=== PATIENT | male | born 1960 | race Caucasian/White ===

== ENCOUNTER 2022-05-06 14:10 | Inpatient (IN) | payer MEDICARE, MEDICAID ==
[~2022-05-06] VITALS: Ht 172.7 cm; Wt 58.3 kg
[2022-05-06] MEDS ORDERED: ZOLPIDEM TARTRATE 10 MG TABLET PO PRN (19:00)
[2022-05-06] MEDS ORDERED: HALOPERIDOL 5 MG TABLET PO PRN (19:00)
[2022-05-06] MEDS ORDERED: LORazepam 2 MG TABLET PO PRN (19:00)
[2022-05-06] MEDS ORDERED: INFLUENZA VIRUS VACCINE QVS 2022-23 (6MO+)/PF 60 MCG/0.5 ML SYRINGE IM. ONE (19:15)
[2022-05-06 20:41] VITALS: BP 105/69
[2022-05-07 07:27] LABS: BASOPHILS % (AUTO) 1.7 % (0.0-2.0); EOSINOPHILS % (AUTO) 5.8 % (1.0-6.0); HEMATOCRIT 42.1 % (41-53); HEMOGLOBIN 13.8 g/dL (13.5-17.5); LYMPHOCYTES # (AUTO) 0.8 K/uL (1.0-4.8); LYMPHOCYTES % (AUTO) 19.3 % (22.0-44.0); MEAN CORPUSCULAR HEMOGLOBIN 31.1 pg (26.0-34.0); MEAN CORPUSCULAR HGB CONC 32.9 G/dL (31.0-37.0); MEAN CORPUSCULAR VOLUME 95 fL (80-100); MONOCYTES # (AUTO) 0.3 K/uL (0.1-1.0); MONOCYTES % (AUTO) 8.5 % (2.0-9.0); NEUTROPHILS # (AUTO) 2.5 K/uL (1.8-7.7); NEUTROPHILS % (AUTO) 64.7 % (40.0-70.0); PLATELET COUNT (AUTO) 325 K/uL (150-450); RED BLOOD CELL COUNT(AUTO) 4.45 MIL/uL (4.50-5.90); RED CELL DISTRIBUTION WIDTH 14.3 % (11.5-14.5)
[2022-05-07 07:56] LABS: ALANINE AMINOTRANSFERASE 39 U/L (12-78); ALBUMIN 3.6 g/dL (3.4-5.0); ALKALINE PHOSPHATASE 58 U/L (46-116); ANION GAP 6 mmol/L (8-16); ASPARTATE AMINOTRANSFERASE 27 U/L (15-37); BILIRUBIN,TOTAL 0.3 mg/dL (0.1-1.0); CALCIUM, TOTAL 8.5 mg/dL (8.8-10.5); CARBON DIOXIDE 28 mmol/L (22-29); CHLORIDE 103 mmol/L (98-107); CHOL/HDL RATIO 2.5 (4.2-7.3); CHOLESTEROL 284 mg/dL (131-200); CREATININE 0.87 mg/dL (0.60-1.30); FREE T4 (FREE THYROXINE) 0.79 ng/dL (0.76-1.46); GLUCOSE,RANDOM 112 mg/dL (70-110); HDL CHOLESTEROL 115 mg/dL (40-60); HEMOGLOBIN A1C 5.4 % (3.8-5.6); LDL CHOL (CALC.) 160 mg/dL (0-130); POTASSIUM 4.2 mmol/L (3.5-5.1); SODIUM SERUM 137 mmol/L (136-145); THYROID STIMULATING HORMONE 2.46 uIU/mL (0.36-3.74); TOTAL PROTEIN, SERUM 7.1 g/dL (6.4-8.2); TRIGLYCERIDES 47 mg/dL (15-150); UREA NITROGEN, BLOOD 20 mg/dL (7-18)
[2022-05-07 08:04] LABS: GLOMERULAR FILTR. RATE CALC > 60 mL/min (>60)
[2022-05-07 09:20] VITALS: BP 120/70
[2022-05-07] MEDS: FLUoxetine HCL 20 MG CAPSULE PO SCH (11:13)
[2022-05-07] MEDS ORDERED: ALBUTEROL SULFATE HFA 90 MCG/PUFF 8 GM INHALER IH PRN (15:15)
[2022-05-07] MEDS ORDERED: MAG HYDROX/AL HYDROX/SIMETH ES 30 ML SUSPENSION UDCUP PO PRN (15:15)
[2022-05-07] MEDS ORDERED: LOPERAMIDE HCL 2 MG CAPSULE PO PRN (15:15)
[2022-05-07] MEDS ORDERED: CloNIDine HCL 0.1 MG TABLET PO PRN (15:15)
[2022-05-07] MEDS ORDERED: NICOTINE 14 MG/24 HOUR PATCH TD PRN (15:15)
[2022-05-07] MEDS ORDERED: MAGNESIUM HYDROXIDE SUSPENSION 30 ML UDCUP PO PRN (15:15)
[2022-05-07] MEDS ORDERED: PETROLATUM,WHITE 28 GM JELLY TP PRN (15:15)
[2022-05-07] MEDS ORDERED: ACETAMINOPHEN 325 MG TABLET PO PRN (15:15)
[2022-05-07] MEDS ORDERED: ONDANSETRON HCL 4 MG TABLET PO PRN (15:15)
[2022-05-07] MEDS ORDERED: IBUPROFEN 400 MG TABLET PO PRN (15:15)
[2022-05-07] MEDS ORDERED: GuaiFENesin/D-METHORPHAN [SUGAR-FREE] 200-20MG/10 ML SYRUP UDCUP PO PRN (15:15)
[2022-05-07] MEDS ORDERED: DOCUSATE SODIUM 100 MG CAPSULE PO PRN (15:15)
[2022-05-07 19:43] VITALS: BP 119/66
[2022-05-07] MEDS: RisperiDONE 2 MG TABLET PO SCH (20:28)
[2022-05-08 08:08] VITALS: BP 111/59
[2022-05-08] MEDS: MULTIVITAMINS WITH MINERALS, THERAPEUTIC TABLET PO SCH (08:13)
[2022-05-08] MEDS: FLUoxetine HCL 20 MG CAPSULE PO SCH (08:13)
[2022-05-08 08:20] LABS: MAGNESIUM 2.1 mg/dL (1.80-2.40); PHOSPHORUS 3.8 mg/dL (2.5-4.9)
[2022-05-08 20:27] VITALS: BP 133/64
[2022-05-08] MEDS: RisperiDONE 2 MG TABLET PO SCH (20:40)
[2022-05-09 08:32] VITALS: BP 139/70
[2022-05-09] MEDS: FLUoxetine HCL 20 MG CAPSULE PO SCH (08:33)
[2022-05-09] MEDS: MULTIVITAMINS WITH MINERALS, THERAPEUTIC TABLET PO SCH (08:33)
[2022-05-09] MEDS: RisperiDONE 2 MG TABLET PO SCH (22:13)
[2022-05-10 06:58] VITALS: BP 123/78
[2022-05-10] MEDS: FLUoxetine HCL 20 MG CAPSULE PO SCH (08:11)
[2022-05-10] MEDS: MULTIVITAMINS WITH MINERALS, THERAPEUTIC TABLET PO SCH (08:11)
[2022-05-10 08:39] VITALS: BP 119/60
[2022-05-10] MEDS: THIAMINE 100 MG TABLET PO SCH (13:37)
[2022-05-10] MEDS: RisperiDONE 2 MG TABLET PO SCH (20:32)
[2022-05-10 20:47] VITALS: BP 127/68
[2022-05-11 07:58] LABS: MAGNESIUM 2.3 mg/dL (1.80-2.40); PHOSPHORUS 3.7 mg/dL (2.5-4.9)
[2022-05-11] MEDS: THIAMINE 100 MG TABLET PO SCH (08:21)
[2022-05-11] MEDS: FLUoxetine HCL 20 MG CAPSULE PO SCH (08:21)
[2022-05-11] MEDS: MULTIVITAMINS WITH MINERALS, THERAPEUTIC TABLET PO SCH (08:21)
[2022-05-11 08:42] VITALS: BP 123/55
[2022-05-11] MEDS: RisperiDONE 2 MG TABLET PO SCH (20:07)
[2022-05-11 20:15] VITALS: BP 115/70
[2022-05-12 08:31] VITALS: BP 113/55
[2022-05-12 08:38] VITALS: BP 113/55
[2022-05-12] MEDS: MULTIVITAMINS WITH MINERALS, THERAPEUTIC TABLET PO SCH (08:55)
[2022-05-12] MEDS: THIAMINE 100 MG TABLET PO SCH (08:55)
[2022-05-12] MEDS: FLUoxetine HCL 20 MG CAPSULE PO SCH (08:55)
[2022-05-12 20:21] VITALS: BP 125/64
[2022-05-12] MEDS: RisperiDONE 2 MG TABLET PO SCH (20:29)
[2022-05-13] MEDS: FLUoxetine HCL 20 MG CAPSULE PO SCH (08:25)
[2022-05-13] MEDS: MULTIVITAMINS WITH MINERALS, THERAPEUTIC TABLET PO SCH (08:25)
[2022-05-13] MEDS: THIAMINE 100 MG TABLET PO SCH (08:25)
[2022-05-13] MEDS: RisperiDONE 2 MG TABLET PO SCH (20:08)
[2022-05-13 20:23] VITALS: BP 115/65
[2022-05-14] MEDS: THIAMINE 100 MG TABLET PO SCH (08:26)
[2022-05-14] MEDS: FLUoxetine HCL 20 MG CAPSULE PO SCH (08:26)
[2022-05-14] MEDS: MULTIVITAMINS WITH MINERALS, THERAPEUTIC TABLET PO SCH (08:26)
[2022-05-14 08:35] VITALS: BP 139/65
[2022-05-14 08:51] LABS: GLUCOMETER DEV NAME(LOC) POC.BV
[2022-05-14] MEDS: RisperiDONE 2 MG TABLET PO SCH (20:37)
[2022-05-14 20:57] VITALS: BP 131/82
[2022-05-15] MEDS: FLUoxetine HCL 20 MG CAPSULE PO SCH (08:22)
[2022-05-15] MEDS: THIAMINE 100 MG TABLET PO SCH (08:22)
[2022-05-15] MEDS: MULTIVITAMINS WITH MINERALS, THERAPEUTIC TABLET PO SCH (08:24)
[2022-05-15 08:26] VITALS: BP 134/79
[2022-05-15 20:12] VITALS: BP 130/68
[2022-05-15] MEDS: RisperiDONE 2 MG TABLET PO SCH (20:49)
[2022-05-16 08:16] VITALS: BP 131/59
[2022-05-16] MEDS: THIAMINE 100 MG TABLET PO SCH (08:16)
[2022-05-16] MEDS: MULTIVITAMINS WITH MINERALS, THERAPEUTIC TABLET PO SCH (08:16)
[2022-05-16] MEDS: FLUoxetine HCL 20 MG CAPSULE PO SCH (08:16)
[2022-05-16 20:00] VITALS: BP 112/72
[2022-05-16] MEDS: RisperiDONE 2 MG TABLET PO SCH (20:17)
[2022-05-17 08:21] VITALS: BP 140/67
[2022-05-17] MEDS: FLUoxetine HCL 20 MG CAPSULE PO SCH (08:55)
[2022-05-17] MEDS: THIAMINE 100 MG TABLET PO SCH (08:55)
[2022-05-17] MEDS: MULTIVITAMINS WITH MINERALS, THERAPEUTIC TABLET PO SCH (08:55)
[2022-05-17 20:15] VITALS: BP 128/62
[2022-05-17] MEDS: RisperiDONE 2 MG TABLET PO SCH (20:25)
[2022-05-18 08:21] VITALS: BP 121/61
[2022-05-18] MEDS: MULTIVITAMINS WITH MINERALS, THERAPEUTIC TABLET PO SCH (08:40)
[2022-05-18] MEDS: THIAMINE 100 MG TABLET PO SCH (08:40)
[2022-05-18] MEDS: FLUoxetine HCL 20 MG CAPSULE PO SCH (08:40)
[2022-05-18] MEDS: RisperiDONE 2 MG TABLET PO SCH (20:13)
[2022-05-18 20:16] VITALS: BP 122/66
[2022-05-19 08:30] VITALS: BP 135/79
[2022-05-19] MEDS: THIAMINE 100 MG TABLET PO SCH (09:15)
[2022-05-19] MEDS: MULTIVITAMINS WITH MINERALS, THERAPEUTIC TABLET PO SCH (09:16)
[2022-05-19] MEDS: FLUoxetine HCL 20 MG CAPSULE PO SCH (09:16)
[2022-05-19] MEDS: RisperiDONE 2 MG TABLET PO SCH (20:10)
[2022-05-19 20:14] VITALS: BP 132/81
[2022-05-20 08:15] VITALS: BP 136/66
[2022-05-20] MEDS: THIAMINE 100 MG TABLET PO SCH (08:39)
[2022-05-20] MEDS: FLUoxetine HCL 20 MG CAPSULE PO SCH (08:39)
[2022-05-20] MEDS: MULTIVITAMINS WITH MINERALS, THERAPEUTIC TABLET PO SCH (08:40)
[2022-05-20] MEDS: RisperiDONE 2 MG TABLET PO SCH (20:20)
[2022-05-20 20:25] VITALS: BP 121/82
[2022-05-21 08:44] VITALS: BP 138/75
[2022-05-21] MEDS: FLUoxetine HCL 20 MG CAPSULE PO SCH (08:50)
[2022-05-21] MEDS: MULTIVITAMINS WITH MINERALS, THERAPEUTIC TABLET PO SCH (08:50)
[2022-05-21] MEDS: THIAMINE 100 MG TABLET PO SCH (08:50)
[2022-05-21 08:51] LABS: GLUCOMETER DEV NAME(LOC) POC.BV
[2022-05-21] MEDS: RisperiDONE 2 MG TABLET PO SCH (20:09)
[2022-05-21 20:20] VITALS: BP 135/69
[2022-05-22 09:08] VITALS: BP 138/70
[2022-05-22] MEDS: FLUoxetine HCL 20 MG CAPSULE PO SCH (09:11)
[2022-05-22] MEDS: MULTIVITAMINS WITH MINERALS, THERAPEUTIC TABLET PO SCH (09:11)
[2022-05-22] MEDS: THIAMINE 100 MG TABLET PO SCH (09:11)
[2022-05-22] MEDS: RisperiDONE 2 MG TABLET PO SCH (20:34)
[2022-05-22 22:55] VITALS: BP 115/68
[2022-05-23 07:13] LABS: EOSINOPHILS % (AUTO) 4.4 % (1.0-6.0); HEMATOCRIT 40.1 % (41-53); HEMOGLOBIN 13.2 g/dL (13.5-17.5); LYMPHOCYTES # (AUTO) 0.9 K/uL (1.0-4.8); LYMPHOCYTES % (AUTO) 17.7 % (22.0-44.0); MEAN CORPUSCULAR VOLUME 94 fL (80-100); MONOCYTES # (AUTO) 0.6 K/uL (0.1-1.0); NEUTROPHILS # (AUTO) 3.5 K/uL (1.8-7.7); NEUTROPHILS % (AUTO) 65.9 % (40.0-70.0); PLATELET COUNT (AUTO) 339 K/uL (150-450); RED BLOOD CELL COUNT(AUTO) 4.27 MIL/uL (4.50-5.90); RED CELL DISTRIBUTION WIDTH 15.1 % (11.5-14.5)
[2022-05-23] MEDS: FLUoxetine HCL 20 MG CAPSULE PO SCH (09:03)
[2022-05-23] MEDS: MULTIVITAMINS WITH MINERALS, THERAPEUTIC TABLET PO SCH (09:03)
[2022-05-23] MEDS: THIAMINE 100 MG TABLET PO SCH (09:03)
[2022-05-23 09:05] VITALS: BP 130/68
[2022-05-23] MEDS: RisperiDONE 2 MG TABLET PO SCH (20:12)
[2022-05-23 20:49] VITALS: BP 128/78
[2022-05-24] MEDS: FLUoxetine HCL 20 MG CAPSULE PO SCH (08:17)
[2022-05-24] MEDS: MULTIVITAMINS WITH MINERALS, THERAPEUTIC TABLET PO SCH (08:17)
[2022-05-24] MEDS: THIAMINE 100 MG TABLET PO SCH (08:17)
[2022-05-24 08:48] VITALS: BP 135/73
[2022-05-24 20:17] VITALS: BP 138/65
[2022-05-24] MEDS: RisperiDONE 2 MG TABLET PO SCH (20:30)
[2022-05-25] MEDS: MULTIVITAMINS WITH MINERALS, THERAPEUTIC TABLET PO SCH (08:49)
[2022-05-25] MEDS: FLUoxetine HCL 20 MG CAPSULE PO SCH (08:49)
[2022-05-25] MEDS: THIAMINE 100 MG TABLET PO SCH (08:49)
[2022-05-25 08:55] VITALS: BP 129/75
[2022-05-25] MEDS: RisperiDONE 2 MG TABLET PO SCH (20:15)
[2022-05-25 20:44] VITALS: BP 116/80
[2022-05-26 08:17] VITALS: BP 122/74
[2022-05-26] MEDS: MULTIVITAMINS WITH MINERALS, THERAPEUTIC TABLET PO SCH (09:26)
[2022-05-26] MEDS: FLUoxetine HCL 20 MG CAPSULE PO SCH (09:26)
[2022-05-26] MEDS: THIAMINE 100 MG TABLET PO SCH (09:26)
[2022-05-26] MEDS: RisperiDONE 2 MG TABLET PO SCH (20:12)
[2022-05-26 20:34] VITALS: BP 136/77
[2022-05-27 04:34] VITALS: BP 139/76
[2022-05-27 08:09] VITALS: BP 148/75
[2022-05-27] MEDS: FLUoxetine HCL 20 MG CAPSULE PO SCH (09:27)
[2022-05-27] MEDS: THIAMINE 100 MG TABLET PO SCH (09:27)
[2022-05-27] MEDS: MULTIVITAMINS WITH MINERALS, THERAPEUTIC TABLET PO SCH (09:27)
[2022-05-27] MEDS: RisperiDONE 2 MG TABLET PO SCH (20:34)
[2022-05-27 21:04] VITALS: BP 136/78
[2022-05-28 08:15] VITALS: BP 144/76
[2022-05-28] MEDS: THIAMINE 100 MG TABLET PO SCH (08:21)
[2022-05-28] MEDS: MULTIVITAMINS WITH MINERALS, THERAPEUTIC TABLET PO SCH (08:21)
[2022-05-28] MEDS: FLUoxetine HCL 20 MG CAPSULE PO SCH (08:21)
[2022-05-28 08:36] LABS: GLUCOMETER DEV NAME(LOC) POC.BV
[2022-05-28 20:15] VITALS: BP 136/69
[2022-05-28] MEDS: RisperiDONE 2 MG TABLET PO SCH (21:07)
[2022-05-29 04:18] VITALS: BP 130/65
[2022-05-29 08:54] VITALS: BP 122/76
[2022-05-29] MEDS: THIAMINE 100 MG TABLET PO SCH (08:54)
[2022-05-29] MEDS: MULTIVITAMINS WITH MINERALS, THERAPEUTIC TABLET PO SCH (08:54)
[2022-05-29] MEDS: FLUoxetine HCL 20 MG CAPSULE PO SCH (08:54)
[2022-05-29] MEDS: RisperiDONE 2 MG TABLET PO SCH (20:12)
[2022-05-29 21:00] VITALS: BP 136/74
[2022-05-30 08:20] VITALS: BP 128/74
[2022-05-30] MEDS: MULTIVITAMINS WITH MINERALS, THERAPEUTIC TABLET PO SCH (09:06)
[2022-05-30] MEDS: THIAMINE 100 MG TABLET PO SCH (09:06)
[2022-05-30] MEDS: FLUoxetine HCL 20 MG CAPSULE PO SCH (09:06)
[2022-05-30] MEDS: RisperiDONE 2 MG TABLET PO SCH (20:05)
[2022-05-30 20:48] VITALS: BP 106/73
[2022-05-31 09:07] VITALS: BP 115/71
[2022-05-31] MEDS: MULTIVITAMINS WITH MINERALS, THERAPEUTIC TABLET PO SCH (10:17)
[2022-05-31] MEDS: THIAMINE 100 MG TABLET PO SCH (10:17)
[2022-05-31] MEDS: FLUoxetine HCL 20 MG CAPSULE PO SCH (10:17)
[2022-05-31 20:50] VITALS: BP 141/71
[2022-05-31] MEDS: RisperiDONE 2 MG TABLET PO SCH (20:58)
[2022-06-01] MEDS: MULTIVITAMINS WITH MINERALS, THERAPEUTIC TABLET PO SCH (08:23)
[2022-06-01] MEDS: THIAMINE 100 MG TABLET PO SCH (08:23)
[2022-06-01] MEDS: FLUoxetine HCL 20 MG CAPSULE PO SCH (08:24)
[2022-06-01 08:34] VITALS: BP 128/77
[2022-06-01 14:46] LABS: GLUCOMETER DEV NAME(LOC) POC.BV
[2022-06-01 20:23] VITALS: BP 130/71
[2022-06-01] MEDS: RisperiDONE 2 MG TABLET PO SCH (20:28)
[2022-06-02 08:25] VITALS: BP 126/67
[2022-06-02] MEDS: FLUoxetine HCL 20 MG CAPSULE PO SCH (08:27)
[2022-06-02] MEDS: MULTIVITAMINS WITH MINERALS, THERAPEUTIC TABLET PO SCH (08:27)
[2022-06-02] MEDS: THIAMINE 100 MG TABLET PO SCH (08:27)
[2022-06-02] MEDS: RisperiDONE 2 MG TABLET PO SCH (20:06)
[2022-06-02 20:19] VITALS: BP 108/67
[2022-06-03 08:33] VITALS: BP 117/79
[2022-06-03] MEDS: FLUoxetine HCL 20 MG CAPSULE PO SCH (08:49)
[2022-06-03] MEDS: MULTIVITAMINS WITH MINERALS, THERAPEUTIC TABLET PO SCH (08:49)
[2022-06-03] MEDS: THIAMINE 100 MG TABLET PO SCH (08:49)
[2022-06-03] MEDS: RisperiDONE 2 MG TABLET PO SCH (20:10)
[2022-06-03 20:57] VITALS: BP 126/64
[2022-06-04 08:53] VITALS: BP 116/69
[2022-06-04] MEDS: MULTIVITAMINS WITH MINERALS, THERAPEUTIC TABLET PO SCH (08:58)
[2022-06-04] MEDS: THIAMINE 100 MG TABLET PO SCH (08:58)
[2022-06-04] MEDS: FLUoxetine HCL 20 MG CAPSULE PO SCH (08:58)
[2022-06-04] MEDS: RisperiDONE 2 MG TABLET PO SCH (20:03)
[2022-06-04 20:35] VITALS: BP 127/76
[2022-06-05 07:12] LABS: BASOPHILS % (AUTO) 0.5 % (0.0-2.0); EOSINOPHILS % (AUTO) 3.9 % (1.0-6.0); HEMATOCRIT 37.7 % (41-53); HEMOGLOBIN 12.5 g/dL (13.5-17.5); LYMPHOCYTES # (AUTO) 0.9 K/uL (1.0-4.8); LYMPHOCYTES % (AUTO) 15.1 % (22.0-44.0); MEAN CORPUSCULAR HEMOGLOBIN 31.1 pg (26.0-34.0); MEAN CORPUSCULAR HGB CONC 33.1 G/dL (31.0-37.0); MEAN CORPUSCULAR VOLUME 94 fL (80-100); MONOCYTES # (AUTO) 0.8 K/uL (0.1-1.0); MONOCYTES % (AUTO) 12.3 % (2.0-9.0); NEUTROPHILS # (AUTO) 4.3 K/uL (1.8-7.7); NEUTROPHILS % (AUTO) 68.2 % (40.0-70.0); PLATELET COUNT (AUTO) 241 K/uL (150-450); RED BLOOD CELL COUNT(AUTO) 4.01 MIL/uL (4.50-5.90); RED CELL DISTRIBUTION WIDTH 14.9 % (11.5-14.5)
[2022-06-05 08:39] VITALS: BP 139/75
[2022-06-05] MEDS: MULTIVITAMINS WITH MINERALS, THERAPEUTIC TABLET PO SCH (09:39)
[2022-06-05] MEDS: THIAMINE 100 MG TABLET PO SCH (09:39)
[2022-06-05] MEDS: FLUoxetine HCL 20 MG CAPSULE PO SCH (09:39)
[2022-06-05 20:24] VITALS: BP 110/70
[2022-06-05] MEDS: RisperiDONE 2 MG TABLET PO SCH (20:59)
[2022-06-06 08:34] VITALS: BP 108/66
[2022-06-06] MEDS: FLUoxetine HCL 20 MG CAPSULE PO SCH (09:43)
[2022-06-06] MEDS: THIAMINE 100 MG TABLET PO SCH (09:43)
[2022-06-06] MEDS: MULTIVITAMINS WITH MINERALS, THERAPEUTIC TABLET PO SCH (09:43)
[2022-06-06] MEDS: RisperiDONE 2 MG TABLET PO SCH (21:21)
[2022-06-06 22:24] VITALS: BP 142/70
[2022-06-07 09:15] VITALS: BP 118/70
[2022-06-07] MEDS: MULTIVITAMINS WITH MINERALS, THERAPEUTIC TABLET PO SCH (09:41)
[2022-06-07] MEDS: THIAMINE 100 MG TABLET PO SCH (09:41)
[2022-06-07] MEDS: FLUoxetine HCL 20 MG CAPSULE PO SCH (09:42)
[2022-06-07] MEDS: RisperiDONE 2 MG TABLET PO SCH (20:13)
[2022-06-07 20:28] VITALS: BP 133/81
[2022-06-08] MEDS: MULTIVITAMINS WITH MINERALS, THERAPEUTIC TABLET PO SCH (08:35)
[2022-06-08] MEDS: THIAMINE 100 MG TABLET PO SCH (08:35)
[2022-06-08] MEDS: FLUoxetine HCL 20 MG CAPSULE PO SCH (08:36)
[2022-06-08 09:01] VITALS: BP 135/71
[2022-06-08 11:21] LABS: GLUCOMETER DEV NAME(LOC) POC.BV
[2022-06-08] MEDS: RisperiDONE 2 MG TABLET PO SCH (20:05)
[2022-06-08 20:54] VITALS: BP 139/73
[2022-06-09 08:17] VITALS: BP 140/72
[2022-06-09] MEDS: THIAMINE 100 MG TABLET PO SCH (09:02)
[2022-06-09] MEDS: MULTIVITAMINS WITH MINERALS, THERAPEUTIC TABLET PO SCH (09:02)
[2022-06-09] MEDS: FLUoxetine HCL 20 MG CAPSULE PO SCH (09:02)
[2022-06-09] MEDS: RisperiDONE 2 MG TABLET PO SCH (20:15)
[2022-06-09 20:26] VITALS: BP 131/77
[2022-06-10 08:27] VITALS: BP 124/65
[2022-06-10] MEDS: THIAMINE 100 MG TABLET PO SCH (08:42)
[2022-06-10] MEDS: MULTIVITAMINS WITH MINERALS, THERAPEUTIC TABLET PO SCH (08:42)
[2022-06-10] MEDS: FLUoxetine HCL 20 MG CAPSULE PO SCH (08:42)
[2022-06-10] MEDS: RisperiDONE 2 MG TABLET PO SCH (20:31)
[2022-06-10 21:36] VITALS: BP 129/61
[2022-06-11 08:34] VITALS: BP 126/67
[2022-06-11] MEDS: MULTIVITAMINS WITH MINERALS, THERAPEUTIC TABLET PO SCH (08:47)
[2022-06-11] MEDS: FLUoxetine HCL 20 MG CAPSULE PO SCH (08:47)
[2022-06-11] MEDS: THIAMINE 100 MG TABLET PO SCH (08:47)
[2022-06-11] MEDS: RisperiDONE 2 MG TABLET PO SCH (20:18)
[2022-06-11 23:30] VITALS: BP 128/68
[2022-06-12 08:28] VITALS: BP 117/67
[2022-06-12] MEDS: MULTIVITAMINS WITH MINERALS, THERAPEUTIC TABLET PO SCH (08:35)
[2022-06-12] MEDS: FLUoxetine HCL 20 MG CAPSULE PO SCH (08:35)
[2022-06-12] MEDS: THIAMINE 100 MG TABLET PO SCH (08:35)
[2022-06-12 20:27] VITALS: BP 125/76
[2022-06-12] MEDS: RisperiDONE 2 MG TABLET PO SCH (20:28)
[2022-06-13 08:28] VITALS: BP 112/68
[2022-06-13] MEDS: THIAMINE 100 MG TABLET PO SCH (09:05)
[2022-06-13] MEDS: MULTIVITAMINS WITH MINERALS, THERAPEUTIC TABLET PO SCH (09:05)
[2022-06-13] MEDS: FLUoxetine HCL 20 MG CAPSULE PO SCH (09:05)
[2022-06-13] MEDS: RisperiDONE 2 MG TABLET PO SCH (20:16)
[2022-06-13 20:22] VITALS: BP 125/73
[2022-06-14] MEDS ORDERED: MULT-1239 PO (08:50)
[2022-06-14] MEDS ORDERED: PROZ20 PO (08:50)
[2022-06-14] MEDS ORDERED: RISP2TAB86 PO (08:50)
[2022-06-14 09:05] VITALS: BP 104/60
[2022-06-14] MEDS: MULTIVITAMINS WITH MINERALS, THERAPEUTIC TABLET PO SCH (09:26)
[2022-06-14] MEDS: THIAMINE 100 MG TABLET PO SCH (09:26)
[2022-06-14] MEDS: FLUoxetine HCL 20 MG CAPSULE PO SCH (09:26)
== END 2022-06-14 12:00 | disposition home or self-care (01) | DRG 885 ==
LOC: B3A 18:57 → B2S 05-19 02:58
PROVIDERS: ADMIT Psychiatry & Neurology Psychiatry; ATTEND Psychiatry & Neurology Psychiatry
DX: F25.1 Schizoaffective disorder, depressive type (principal); E46 Unspecified protein-calorie malnutrition; R45.851 Suicidal ideations; Z68.1 Body mass index [BMI] 19.9 or less, adult; D72.819 Decreased white blood cell count, unspecified; E78.00 Pure hypercholesterolemia, unspecified; M19.90 Unspecified osteoarthritis, unspecified site; Z20.822 Contact with and (suspected) exposure to COVID-19; Z79.899 Other long term (current) drug therapy; Z59.00 Homelessness unspecified; Z63.8 Other specified problems related to primary support group
CPT/HCPCS: 80053; 80061; 83036; 83735; 84100; 84439; 84443; 85025; 87081